=== PATIENT | female | born 1970 | race Caucasian/White ===

== ENCOUNTER → 2020-10-25 | Outpatient (CLI) | payer BC ==
[~2020-10-25] MED LIST: COZAAR100 MG PO; HYDROCHLOROTHIA25 MG PO; IBUPROFEN600 MG PO; MACROBID 100 M100 MG PO; NORCO 5-325 TA1 EACH PO; NORVASC5 MG PO; OMEPRAZOLE40 MG PO
== END ==
LOC: MRI 12:16
DX: R22.31 Localized swelling, mass and lump, right upper limb (principal)
CPT/HCPCS: 73223; A9577

== ENCOUNTER → 2020-12-22 | Day surgery (SDC) | payer BC ==
[~2020-12-22] VITALS: Ht 162.6 cm; Wt 96.6 kg
[~2020-12-22] MED LIST changes: +CLOBETASOL 0.0560 GM TP; +EFFEXOR 37.537.5 MG PO; +HYDROCODON-ACE1 EAC4 PO; +HYZAAR 100-12.1 EACH PO; +MOBIC15 MG PO; +OMEGA 3 1,0001 EACH PO; +TYLENOL 8 HOUR650 MG PO
[2020-12-22 07:08] LABS: RED BLOOD COUNT 4.72 M/UL (4.00-5.10)
[2020-12-22 08:03] LABS: BUN/CREATININE RATIO 21 (0-10)
== END | disposition home or self-care (01) ==
LOC: OR 05:31
PROVIDERS: Orthopaedic Surgery
DX: G56.02 Carpal tunnel syndrome, left upper limb (principal); M65.4 Radial styloid tenosynovitis [de Quervain]; M77.01 Medial epicondylitis, right elbow; M18.12 Unilateral primary osteoarthritis of first carpometacarpal joint, left hand; I10 Essential (primary) hypertension; K21.9 Gastro-esophageal reflux disease without esophagitis; L40.50 Arthropathic psoriasis, unspecified; F32.A Depression, unspecified; E66.9 Obesity, unspecified; Z68.36 Body mass index [BMI] 36.0-36.9, adult; Z79.899 Other long term (current) drug therapy
CPT/HCPCS: 80048; 85025; J0690; J1100; J2001; J2250; J2405; J2704; J3010; J3301; J7120